=== PATIENT | male | born 1955 | race Caucasian/White ===

== ENCOUNTER 2020-08-27 13:24 | Outpatient (CLI) | payer MEDICARE ==
[2020-08-28 01:31] LABS: SARS-CoV-2 PCR by NAA Not Detected (NotDetected)
== END 2020-08-27 13:25 | disposition home or self-care (01) ==
LOC: CSHLAB 13:24
PROVIDERS: ATTEND Internal Medicine Gastroenterology
DX: Z20.822 Contact with and (suspected) exposure to COVID-19 (principal); Z12.11 Encounter for screening for malignant neoplasm of colon
CPT/HCPCS: 87635; U0003; U0005

== ENCOUNTER 2020-08-30 07:18 | Day surgery (SDC) | payer MEDICARE ==
[2020-08-29 12:21] VITALS: BMI 23.7
[2020-08-30] MEDS ORDERED: Lidocaine 1% MPF 2 ML VIAL ONE (07:35)
[2020-08-30] MEDS ORDERED: PROPOFOL 40 ML ONE (10:02)
[2020-08-30] MEDS ORDERED: Glycopyrrolate 0.2 MG/ML 5 ML SYRINGE ONE (10:15)
[2020-08-30] MEDS ORDERED: PROPOFOL 20 ML ONE ×2 (10:41→11:07)
== END 2020-08-30 12:15 | disposition home or self-care (01) ==
LOC: CSHSDC 07:18
PROVIDERS: ATTEND Internal Medicine Gastroenterology
PROC: 0DBL8ZX Excision of Transverse Colon, Via Natural or Artificial Opening Endoscopic, Diagnostic (ICD-10-PCS; principal; 2020-08-30)
PROC: 3E0H8KZ Introduction of Other Diagnostic Substance into Lower GI, Via Natural or Artificial Opening Endoscopic (ICD-10-PCS; 2020-08-30)
DX: Z12.11 Encounter for screening for malignant neoplasm of colon (principal); D12.3 Benign neoplasm of transverse colon; K62.1 Rectal polyp; Q43.8 Other specified congenital malformations of intestine; Z86.010 Personal history of colon polyps; Z87.448 Personal history of other diseases of urinary system
CPT/HCPCS: 88305; J2704

== ENCOUNTER 2021-03-19 13:13 | Outpatient (CLI) | payer MEDICARE ==
[2021-03-20 01:30] LABS: SARS-CoV-2 PCR by NAA Not Detected (NotDetected)
== END 2021-03-19 13:14 | disposition home or self-care (01) ==
LOC: CSHLAB 13:13
PROVIDERS: ATTEND Internal Medicine Gastroenterology
DX: Z20.822 Contact with and (suspected) exposure to COVID-19 (principal)
CPT/HCPCS: U0003; U0005

== ENCOUNTER 2021-03-21 06:11 | Day surgery (SDC) | payer MEDICARE ==
[2021-03-19 14:07] VITALS: BMI 23.6
[2021-03-21] MEDS ORDERED: PROPOFOL 40 ML ONE (07:08)
[2021-03-21] MEDS ORDERED: Lidocaine 1% PF 5 ML VIAL ONE (07:08)
[2021-03-21] MEDS ORDERED: Glycopyrrolate 0.2 MG/ML 5 ML SYRINGE ONE (07:48)
[2021-03-21] MEDS ORDERED: PROPOFOL 20 ML ONE (08:08)
== END 2021-03-21 09:15 | disposition home or self-care (01) ==
LOC: CSHSDC 06:11
PROVIDERS: ATTEND Internal Medicine Gastroenterology
PROC: 0DBP8ZZ Excision of Rectum, Via Natural or Artificial Opening Endoscopic (ICD-10-PCS; principal; 2021-03-21)
DX: Z12.11 Encounter for screening for malignant neoplasm of colon (principal); D12.8 Benign neoplasm of rectum; Z86.010 Personal history of colon polyps
CPT/HCPCS: 88305; J2704

== ENCOUNTER 2022-06-13 10:22 | Outpatient (CLI) | payer MEDICARE ==
[2022-06-13] MEDS ORDERED: Magnevist 469MG/ML 20 ML VIAL ONE (11:22)
== END 2022-06-13 10:23 | disposition home or self-care (01) ==
LOC: CSHMRI 10:22
PROVIDERS: ATTEND Urology
DX: R97.20 Elevated prostate specific antigen [PSA] (principal)
CPT/HCPCS: 72197; 82565; A9579